=== PATIENT | male | born 1980 | race American Indian/Alaskan Native ===

== ENCOUNTER 2017-03-16 10:08 | Emergency (ER) | payer SELFPAY ==
[2017-03-16 10:42] LABS: Basophils % (Auto) 0.5 % (0.0-1.8); Eosinophils # (Auto) 0.1 K/mm3 (0.0-0.4); Eosinophils % (Auto) 1.6 % (0.0-4.3); Hematocrit 45.6 % (35.5-45.6); Hemoglobin 15.3 gm/dl (11.8-15.2); Lymphocytes % (Auto) 30.1 % (13.4-35.0); Mean Corpuscular HGB Conc 34 % (32-34); Mean Corpuscular Hemoglobin 29 pg (28-32); Mean Corpuscular Volume 86 fl (84-94); Monocytes # (Auto) 0.6 K/mm3 (0.0-0.8); Monocytes % (Auto) 9.6 % (0.0-7.3); Platelet Count 203 K/mm3 (140-440); Red Blood Count 5.28 M/mm3 (3.65-5.03); Red Cell Distribution Width 13.9 % (13.2-15.2)
[2017-03-16 10:48] LABS: Bilirubin,Urine NEG (Negative); Blood,Urine NEG (Negative); Color,Urine Yellow (Yellow); Nitrite,Urine NEG (Negative); Protein,Urine <15 mg/dL mg/dL (Negative)
[2017-03-16 11:03] LABS: Alanine Aminotransferase 25 units/L (7-56); Albumin 4.1 g/dL (3.9-5); BUN/Creatinine Ratio 11; Blood Urea Nitrogen 13 mg/dL (9-20); Calcium 8.9 mg/dL (8.4-10.2); Hemolysis Index 18
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
--- NOTE | 2017-03-16 23:26 | Cat Scan Report ---
FINAL REPORT PROCEDURE: CT ABDOMEN PELVIS WO CON TECHNIQUE: Computerized axial tomography of the abdomen and pelvis was performed without intravenous contrast. This study is performed without intravascular contrast material and its sensitivity for abdominal and pelvic pathology, including neoplasms, inflammation, abscess, free fluid, thrombosis, arterial dissection and infarction, is reduced compared with a contrast enhanced study. HISTORY: flank pain COMPARISON: No prior studies are available for comparison. FINDINGS: Visualized lower thorax: No significant abnormality. Liver: Normal size and attenuation. Spleen: Normal size and attenuation. Gallbladder and biliary system: Normal. Pancreas: Normal. Adrenals: Normal. Kidneys: There are no kidney stones or ureteral stones. There is no hydronephrosis.. GI tract: There is inflammation of the left pericolonic fat. There is a discrete 2 centimeter lucent lesion adjacent to the left colon. These findings are consistent with incidental torsed epiploic appendage. Diverticulitis considered less likely. There is no bowel obstruction. The stomach, small bowel and appendix are normal.. Lymph nodes and mesentery: Normal. Vasculature: Normal. Bladder: Normal. Reproductive organs: Normal. Peritoneum: There is no ascites or free air, abscess or adenopathy.. Musculoskeletal structures: No significant abnormality. Other: None. IMPRESSION: There are no kidney stones or ureteral stones. There is no hydronephrosis.. There is inflammation of the left pericolonic fat. There is a discrete 2 centimeter lucent lesion adjacent to the left colon. These findings are consistent with incidental torsed epiploic appendage. Diverticulitis considered less likely. There is no bowel obstruction. The stomach, small bowel and appendix are normal.. There is no ascites or free air, abscess or adenopathy.. .
[2017-03-17 03:10] VITALS: BP 140/80
== END 2017-03-17 01:45 | disposition home or self-care (01) ==
LOC: ED 10:08
DX: R10.32 Left lower quadrant pain (principal); R11.0 Nausea; Z98.890 Other specified postprocedural states; Z87.891 Personal history of nicotine dependence
CPT/HCPCS: 36415; 74176; 80053; 81001; 85025

== ENCOUNTER 2021-11-23 11:08 | Emergency (ER) | payer SELFPAY ==
--- NOTE | 2021-11-23 19:55 | XRay Report ---
. RIGHT SHOULDER 3 VIEW(S) INDICATION / CLINICAL INFORMATION: INJURY. Instability COMPARISON: None available. FINDINGS: BONES / JOINT(S): No acute fracture or subluxation. Probable small avulsion fracture along the inferi or aspect of the glenoid possibly secondary to previous dislocation. No significant arthritis. SOFT TISSUES: No significant abnormality. ADDITIONAL FINDINGS: None. IMPRESSION: 1. Possible previous anterior shoulder dislocation with tiny avulsion fracture. Consider right should er MRI arthrogram as outpatient follow-up for further evaluation. Signer Name: Geremias Mata MD Signed: 11/23/2021 7:51 PM Workstation Name: [id number]
[2021-11-24] MEDS ORDERED: dexAMETHasone 20 MG/5 ML VIAL IM ONE (02:59)
[2021-11-24] MEDS ORDERED: dexAMETHasone 20 MG/5 ML VIAL IV ONE (02:59)
[2021-11-24] MEDS ORDERED: traMADol 50 MG TAB PO ONE (03:00)
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
[2021-11-24 03:17] VITALS: BP 137/86
== END 2021-11-24 03:17 | disposition home or self-care (01) ==
LOC: ED 11:08
DX: S43.401A Unspecified sprain of right shoulder joint, initial encounter (principal); Z87.891 Personal history of nicotine dependence; X58.XXXA Exposure to other specified factors, initial encounter; Y93.89 Activity, other specified; Y92.89 Other specified places as the place of occurrence of the external cause; Y99.8 Other external cause status
CPT/HCPCS: 73030; 96372; 99283; J1100